=== PATIENT | female | born 1990 | race African-American/Black ===

== ENCOUNTER 2022-05-02 13:17 | Observation (INO) | payer OTHER ==
[2022-05-02] MEDS ORDERED: Sodium Chloride 0.9% 1,000 ML IV ONE ×3 (13:30→17:34)
[2022-05-02] MEDS ORDERED: Sodium Chloride 0.9% 2.5 ML Syringe FLUSH PRN (13:30)
[2022-05-02] MEDS ORDERED: Sodium Chloride 0.9% 10 ML Syringe FLUSH PRN (13:30)
[2022-05-02] MEDS ORDERED: HYDROmorphone 1 MG/ML Syringe IVPUSH ONE ×3 (13:35→21:30)
[2022-05-02] MEDS ORDERED: diphenhydrAMINE 50 MG/ML SDV IVPUSH ONE (13:35)
[2022-05-02] MEDS ORDERED: Ondansetron 4 MG/2 ML SDV IVPUSH ONE (13:43)
[2022-05-02 14:55] LABS: CARBON DIOXIDE,CO2 23.9 mmol/L (21.0-32.0)
[2022-05-02] MEDS ORDERED: Acetaminophen/oxyCODONE 325-5 MG Tab PO ONE (16:25)
[2022-05-02] MEDS ORDERED: HYDROmorphone 2 MG/ML Syringe IVPUSH ONE (17:55)
[2022-05-02] MEDS ORDERED: Ondansetron 4 MG/2 ML SDV IVPUSH PRN (19:10)
[2022-05-02] MEDS ORDERED: HYDROmorphone 2 MG/ML Syringe IVPUSH PRN (19:11)
[2022-05-02] MEDS ORDERED: Docusate Sodium 100 MG Cap PO PRN (19:12)
[2022-05-02] MEDS ORDERED: diphenhydrAMINE 50 MG/ML SDV IVPUSH PRN ×2 (19:13→23:11)
[2022-05-02] MEDS ORDERED: HYDROmorphone/Normal Saline 10 MG/50 ML PCA IV PRN (19:27)
[2022-05-02] MEDS ORDERED: Naloxone 0.4 MG/ML SDV IVPUSH PRN (19:27)
[2022-05-02] MEDS: Heparin Sodium 5,000 Units/ML Vial SUBCUT SCH (19:37)
[2022-05-02] MEDS: diphenhydrAMINE 50 MG/ML SDV IVPUSH PRN (23:19)
[2022-05-02] MEDS: HYDROmorphone 2 MG/ML Syringe IVPUSH PRN (23:38)
[2022-05-03] MEDS: HYDROmorphone 2 MG/ML Syringe IVPUSH PRN ×8 (01:40→16:51)
[2022-05-03] MEDS: Lactated Ringers 1,000 ML IV SCH ×3 (02:25→16:51)
[2022-05-03] MEDS: diphenhydrAMINE 50 MG/ML SDV IVPUSH PRN ×4 (03:44→16:52)
[2022-05-03] MEDS: Heparin Sodium 5,000 Units/ML Vial SUBCUT SCH ×2 (03:48→12:08)
[2022-05-03 06:54] LABS: CARBON DIOXIDE,CO2 22.5 mmol/L (21.0-32.0); POTASSIUM,K 4.5 mmol/L (3.5-5.1)
== END 2022-05-03 18:16 | disposition left against medical advice (07) ==
LOC: MW.ED 13:17 → MW.MS 17:33
PROVIDERS: ADMIT Internal Medicine; ATTEND Internal Medicine
DX: D57.00 Hb-SS disease with crisis, unspecified (principal); R07.9 Chest pain, unspecified; Z88.6 Allergy status to analgesic agent; Z88.1 Allergy status to other antibiotic agents; Z79.899 Other long term (current) drug therapy; Z20.822 Contact with and (suspected) exposure to COVID-19
CPT/HCPCS: 36415; 71045; 80053; 81001; 81025; 82803; 84484; 85025; 85027; 85045; 85610; 85730; 87086; 87635; 93005; A9270; J1170; J1200; J1644; J2405; J3490; J7030; J7120; 93010; 96361; 96374; 96375; 96376; 99284; 99285-25; U0002

== ENCOUNTER 2022-06-11 20:11 | Inpatient (IN) | payer OTHER ==
[2022-06-11] MEDS ORDERED: HYDROmorphone 1 MG/ML Syringe IVPUSH ONE ×2 (21:19→23:06)
[2022-06-11] MEDS ORDERED: diphenhydrAMINE 50 MG/ML SDV ONE (22:13)
[2022-06-11] MEDS ORDERED: Ketorolac 30 MG/ML SDV IVPUSH ONE (22:16)
[2022-06-11] MEDS ORDERED: diphenhydrAMINE 50 MG/ML SDV IVPUSH ONE ×2 (22:16→23:06)
[2022-06-11] MEDS ORDERED: Sodium Chloride 0.9% 1,000 ML IV STA (22:19)
[2022-06-11 22:40] LABS: CARBON DIOXIDE,CO2 28.5 mmol/L (21.0-32.0); POTASSIUM,K 3.9 mmol/L (3.5-5.1)
[2022-06-12] MEDS ORDERED: HYDROmorphone 1 MG/ML Syringe IVPUSH ONE (00:41)
[2022-06-12] MEDS ORDERED: diphenhydrAMINE 25 MG Cap PO PRN (02:11)
[2022-06-12] MEDS: HYDROmorphone 2 MG/ML Syringe IVPUSH PRN ×11 (02:39→23:17)
[2022-06-12] MEDS: diphenhydrAMINE 50 MG/ML SDV IVPUSH PRN ×5 (03:21→21:20)
[2022-06-12] MEDS ORDERED: Fluconazole 150 MG Tab PO ONE (11:00)
[2022-06-12 11:01] LABS: CARBON DIOXIDE,CO2 29.1 mmol/L (21.0-32.0); POTASSIUM,K 3.6 mmol/L (3.5-5.1)
[2022-06-12] MEDS ORDERED: Ondansetron 4 MG/2 ML SDV IVPUSH ONE (11:02)
[2022-06-12] MEDS ORDERED: Iopamidol 755 Mg/ML 100 ML Bottle IVPUSH ONE (12:13)
[2022-06-12] MEDS: Pantoprazole 40 MG Tab.CR PO SCH (13:40)
[2022-06-12] MEDS ORDERED: Albuterol/Ipratropium 3.0-0.5 MG/3 ML Neb Soln NEB PRN (14:00)
[2022-06-12] MEDS ORDERED: Ondansetron 4 MG/2 ML SDV IVPUSH PRN (15:00)
[2022-06-12] MEDS ORDERED: Polyethylene Glycol 3350 Powder 17 GM Packet PO PRN (16:08)
[2022-06-12] MEDS: Docusate Sodium 100 MG Cap PO SCH (16:24)
[2022-06-12] MEDS: Hydroxyurea 500 MG Cap PO SCH (21:19)
[2022-06-13] MEDS: diphenhydrAMINE 50 MG/ML SDV IVPUSH PRN ×6 (01:39→23:04)
[2022-06-13] MEDS: HYDROmorphone 2 MG/ML Syringe IVPUSH PRN ×11 (01:40→23:04)
[2022-06-13] MEDS: Pantoprazole 40 MG Tab.CR PO SCH (08:04)
[2022-06-13] MEDS: Lactulose Soln 10 GM/15 ML 15 ML UD Cup PO SCH (08:54)
[2022-06-13] MEDS ORDERED: Lactulose Soln 10 GM/15 ML 15 ML UD Cup PO SCH (09:00)
[2022-06-13] MEDS ORDERED: Acetaminophen 325 MG Tab PO ONE (13:01)
[2022-06-13 13:46] LABS: POTASSIUM,K 4.2 mmol/L (3.5-5.1)
[2022-06-13] MEDS ORDERED: Lactulose Soln 10 GM/15 ML 15 ML UD Cup PO ONE ×2 (14:41→18:03)
[2022-06-13] MEDS: Hydroxyurea 500 MG Cap PO SCH (20:31)
[2022-06-14] MEDS: HYDROmorphone 2 MG/ML Syringe IVPUSH PRN ×11 (01:28→23:04)
[2022-06-14] MEDS: diphenhydrAMINE 50 MG/ML SDV IVPUSH PRN ×5 (03:33→20:55)
[2022-06-14] MEDS: Lactulose Soln 10 GM/15 ML 15 ML UD Cup PO SCH (08:02)
[2022-06-14] MEDS: Pantoprazole 40 MG Tab.CR PO SCH (08:02)
[2022-06-14] MEDS: Docusate Sodium 100 MG Cap PO SCH (08:34)
[2022-06-14] MEDS: Hydroxyurea 500 MG Cap PO SCH (20:55)
[2022-06-15] MEDS: HYDROmorphone 2 MG/ML Syringe IVPUSH PRN ×8 (01:27→16:06)
[2022-06-15] MEDS: diphenhydrAMINE 50 MG/ML SDV IVPUSH PRN ×4 (03:26→16:06)
[2022-06-15] MEDS: Docusate Sodium 100 MG Cap PO SCH (07:59)
[2022-06-15] MEDS: Pantoprazole 40 MG Tab.CR PO SCH (07:59)
[2022-06-15] MEDS: Lactulose Soln 10 GM/15 ML 15 ML UD Cup PO SCH (07:59)
== END 2022-06-15 16:25 | disposition home or self-care (01) | DRG 812 ==
LOC: MW.ED 20:11 → MW.MS 06-12 00:40 → OBSVTOIN 06-14 10:03 → MW.MS 06-14 12:00
PROVIDERS: ADMIT Internal Medicine; ATTEND Internal Medicine
DX: D57.00 Hb-SS disease with crisis, unspecified (principal); Z88.1 Allergy status to other antibiotic agents; Z88.5 Allergy status to narcotic agent; Z79.899 Other long term (current) drug therapy; K59.00 Constipation, unspecified; B37.9 Candidiasis, unspecified; Z20.822 Contact with and (suspected) exposure to COVID-19
CPT/HCPCS: 36415; 36430; 71045; 71045-26; 71046; 71046-26; 74177; 74177-26; 80048; 80053; 84703; 85014; 85018; 85025; 85045; 86850; 86900; 86901; 86920; 96361; 96374; 96375; 96376; 99284; 99285-25; A9270-GY; G0378; J1170; J1200; J1885; J2405; J7030; P9016; Q9967; U0002

== ENCOUNTER 2022-07-04 14:00 | Emergency (ER) | payer OTHER ==
[2022-07-04] MEDS ORDERED: Sodium Chloride 0.9% 1,000 ML IV ONE ×2 (16:20→18:03)
[2022-07-04] MEDS ORDERED: HYDROmorphone 1 MG/ML Syringe IVPUSH ONE ×2 (16:26→18:03)
[2022-07-04] MEDS ORDERED: HYDROmorphone 1 MG/ML Syringe IM ONE (16:36)
[2022-07-04] MEDS ORDERED: diphenhydrAMINE 50 MG/ML SDV IVPUSH ONE (18:03)
[2022-07-04] MEDS ORDERED: Ketorolac 30 MG/ML SDV IVPUSH ONE (18:03)
[2022-07-04 18:25] LABS: CARBON DIOXIDE,CO2 24.7 mmol/L (21.0-32.0)
[2022-07-04 19:31] LABS: CORONAVIRUS COVID-19 NAA NEGATIVE (NEGATIVE); INFLUENZA A NAA NEGATIVE (NEGATIVE); INFLUENZA B NAA NEGATIVE (NEGATIVE)
== END 2022-07-04 19:30 | disposition home or self-care (01) ==
LOC: MW.ED 14:00
DX: D57.00 Hb-SS disease with crisis, unspecified (principal); Z88.1 Allergy status to other antibiotic agents; Z88.5 Allergy status to narcotic agent; Z20.822 Contact with and (suspected) exposure to COVID-19
CPT/HCPCS: 0240U; 36415; 71046; 80053; 81003; 83690; 84484; 84703; 85025; 85045; 93005; 96361; 96372; 96374; 96375; 99284; J1170; J1200; J1885; J7030; 93010